=== PATIENT | male | born 1995 | race Caucasian/White ===

== ENCOUNTER 2019-05-14 17:11 | Emergency (ER) | payer OTHER ==
[~2019-05-14] VITALS: Ht 195.6 cm; Wt 79.5 kg
[2019-05-14 17:49] LABS: HEMATOCRIT 44.2 % (42.0-52.0); HEMOGLOBIN 16.2 g/dL (13.5-18.0); MEAN CELL VOLUME 88 fl (78-100); MEAN CORPUSCULAR HEMOGLOBIN 32 pg (27-31); MEAN CORPUSCULAR HGB CONC 37 g/dL (33-37); MEAN PLATELET VOLUME 10.3 fl (7.4-10.4); PLATELET COUNT 119 K/mm3 (130-400); RED BLOOD COUNT 5.02 M/mm3 (4.20-5.60); RED CELL DISTRIBUTION WIDTH 11.8 % (11.5-14.5); WHITE BLOOD COUNT 11.7 K/mm3 (4.8-10.8)
[2019-05-14 17:59] LABS: ALBUMIN 4.3 g/dL (3.5-5.0)
[2019-05-14 18:00] LABS: SODIUM 131 mmol/L (136-145)
[2019-05-14 18:01] LABS: CALCIUM 9.9 mg/dL (8.3-10.5)
[2019-05-14 18:02] LABS: GLUCOSE 145 mg/dL (75-110); TOTAL PROTEIN 7.4 g/dL (6.4-8.3)
[2019-05-14 18:03] LABS: CARBON DIOXIDE 31 mmol/L (22-29)
[2019-05-14 18:04] LABS: TOTAL BILIRUBIN 2.8 mg/dL (0.2-1.2)
[2019-05-14 18:07] LABS: AST-SGOT 78 U/L (5-34)
[2019-05-14 18:09] LABS: ALT/SGPT 58 U/L (0-55)
[2019-05-14 18:15] LABS: ALCOHOL IN-HOUSE < 10 mg/dL (<10); POTASSIUM 2.6 mmol/L (3.5-5.1)
[2019-05-14 18:25] LABS: BAND 1 % (0-10); LYMPHOCYTE 14 % (20-51); MONOCYTE 11 % (3-10); NEUTROPHILS 74 % (42-75)
[2019-05-14 20:01] LABS: URINE APPEARANCE CLOUDY; URINE BILIRUBIN 1+ (NEGATIVE); URINE BLOOD 50 ery/uL (NEGATIVE); URINE COLOR AMBER; URINE GLUCOSE NEGATIVE (NEGATIVE); URINE KETONE TR (NEGATIVE); URINE LEUKOCYTE ESTERASE NEGATIVE (NEGATIVE); URINE NITRATE NEGATIVE (NEGATIVE); URINE PROTEIN(semi-quant) 1+ mg/dL (NEGATIVE); URINE UROBILINOGEN NORMAL (NORMAL); URINE WBC 0-1 /hpf (0-3)
[2019-05-14 20:02] LABS: URINE MUCUS PRESENT (NOT PRESENT)
[2019-05-14 22:30] LABS: CALCIUM 8.6 mg/dL (8.3-10.5)
[2019-05-14 22:36] LABS: POTASSIUM 2.8 mmol/L (3.5-5.1)
[2019-05-15 01:02] VITALS: BP 143/95
[2019-05-15] MEDS ORDERED: K-TAB20 MEQ PO (01:05)
== END 2019-05-15 01:14 | disposition home or self-care (01) ==
LOC: ED 17:11
PROVIDERS: Nurse Practitioner Family
DX: E87.6 Hypokalemia (principal); R55 Syncope and collapse; E86.1 Hypovolemia; R19.7 Diarrhea, unspecified; R11.2 Nausea with vomiting, unspecified; F32.9 Major depressive disorder, single episode, unspecified; Z90.49 Acquired absence of other specified parts of digestive tract
CPT/HCPCS: J2405; J3480; J7030

== ENCOUNTER 2019-05-27 21:04 | Emergency (ER) | payer OTHER ==
[~2019-05-27 21:04] MED LIST: K-TAB20 MEQ PO
[2019-05-27 22:12] LABS: EOS % 0.1 % (0.0-4.0); HEMATOCRIT 44.1 % (42.0-52.0); HEMOGLOBIN 15.5 g/dL (13.5-18.0); LYMPH# 1.2 (1.50-4.00); MEAN CELL VOLUME 90 fl (78-100); MEAN CORPUSCULAR HEMOGLOBIN 32 pg (27-31); MEAN CORPUSCULAR HGB CONC 35 g/dL (33-37); MEAN PLATELET VOLUME 10.5 fl (7.4-10.4); MONO # 0.5 (0.20-0.80); NEU # 5.7 (1.40-6.50); PLATELET COUNT 158 K/mm3 (130-400); RED BLOOD COUNT 4.92 M/mm3 (4.20-5.60); RED CELL DISTRIBUTION WIDTH 12.1 % (11.5-14.5); WHITE BLOOD COUNT 7.5 K/mm3 (4.8-10.8)
[2019-05-27 22:19] LABS: SODIUM 134 mmol/L (136-145)
[2019-05-27 22:20] LABS: ALBUMIN 3.9 g/dL (3.5-5.0)
[2019-05-27 22:21] LABS: CALCIUM 9.3 mg/dL (8.3-10.5)
[2019-05-27 22:22] LABS: GLUCOSE 99 mg/dL (75-110); TOTAL PROTEIN 6.7 g/dL (6.4-8.3)
[2019-05-27 22:23] LABS: CARBON DIOXIDE 33 mmol/L (22-29)
[2019-05-27 22:24] LABS: TOTAL BILIRUBIN 1.4 mg/dL (0.2-1.2)
[2019-05-27 22:27] LABS: AST-SGOT 94 U/L (5-34)
[2019-05-27 22:29] LABS: ALT/SGPT 119 U/L (0-55)
[2019-05-27 22:42] LABS: ALCOHOL IN-HOUSE < 10 mg/dL (<10); POTASSIUM 2.7 mmol/L (3.5-5.1)
[2019-05-27 23:39] LABS: PH-URINE 7.5 (5.0 - 8.0); URINE APPEARANCE CLEAR; URINE BILIRUBIN NEGATIVE (NEGATIVE); URINE BLOOD NEGATIVE (NEGATIVE); URINE COLOR YELLOW; URINE GLUCOSE NEGATIVE (NEGATIVE); URINE KETONE 1+ (NEGATIVE); URINE LEUKOCYTE ESTERASE NEGATIVE (NEGATIVE); URINE NITRATE NEGATIVE (NEGATIVE); URINE PROTEIN(semi-quant) TRACE mg/dL (NEGATIVE); URINE UROBILINOGEN NORMAL (NORMAL); URINE WBC 0-1 /hpf (0-3)
[2019-05-27 23:40] LABS: URINE MUCUS PRESENT (NOT PRESENT)
[2019-05-28 01:16] VITALS: BP 131/82
== END 2019-05-28 01:16 | disposition short-term general hospital (02) ==
LOC: ED 21:04
PROVIDERS: Physician Assistant
DX: R56.9 Unspecified convulsions (principal); E87.6 Hypokalemia; Z90.49 Acquired absence of other specified parts of digestive tract; Z88.0 Allergy status to penicillin
CPT/HCPCS: J3480

== ENCOUNTER 2019-08-10 22:01 | Emergency (ER) | payer OTHER ==
[~2019-08-10] VITALS: Ht 195.6 cm; Wt 81.8 kg
[2019-08-10] MEDS ORDERED: KEPPRA 500MG500 MG PO (22:08)
[2019-08-10 23:15] VITALS: BP 148/91
== END 2019-08-10 23:15 | disposition home or self-care (01) ==
LOC: ED 22:01
DX: G40.909 Epilepsy, unspecified, not intractable, without status epilepticus (principal); Z88.1 Allergy status to other antibiotic agents

== ENCOUNTER 2020-01-14 22:59 | Emergency (ER) | payer OTHER ==
[~2020-01-14 22:59] MED LIST changes: +ATIVAN1 M1 PO; +KEPPRA 500MG500 MG PO; +VALIUM 5MG T5 MG/TAB PO; +ZOFRAN ODT4 MG PO
[2020-01-14] MEDS ORDERED: PAROXETINE HYDR10 MG PO (23:14)
[2020-01-15 00:27] LABS: HEMATOCRIT 47.4 % (42.0-52.0); HEMOGLOBIN 16.2 g/dL (13.5-18.0); LYMPH# 1.8 (1.50-4.00); MEAN CELL VOLUME 95 fl (78-100); MEAN CORPUSCULAR HEMOGLOBIN 33 pg (27-31); MEAN CORPUSCULAR HGB CONC 34 g/dL (33-37); MEAN PLATELET VOLUME 9.8 fl (7.4-10.4); MONO # 1.3 (0.20-0.80); PLATELET COUNT 349 K/mm3 (130-400); RED BLOOD COUNT 4.98 M/mm3 (4.20-5.60); RED CELL DISTRIBUTION WIDTH 12.7 % (11.5-14.5); WHITE BLOOD COUNT 13.6 K/mm3 (4.8-10.8)
[2020-01-15 00:33] LABS: POTASSIUM 3.4 mmol/L (3.5-5.1)
[2020-01-15 00:35] LABS: ALBUMIN 5.2 g/dL (3.5-5.0); SODIUM 141 mmol/L (136-145)
[2020-01-15 00:36] LABS: CALCIUM 10.7 mg/dL (8.3-10.5); CARBON DIOXIDE 32 mmol/L (22-29)
[2020-01-15 00:37] LABS: GLUCOSE 163 mg/dL (75-110); TOTAL BILIRUBIN 1.6 mg/dL (0.2-1.2)
[2020-01-15 00:40] LABS: AST-SGOT 59 U/L (5-34)
[2020-01-15 00:41] LABS: MAGNESIUM 1.59 mg/dL (1.60-2.60); NEU # 10.5 (1.40-6.50)
[2020-01-15 00:42] LABS: ALCOHOL IN-HOUSE < 10 mg/dL (<10); ALT/SGPT 93 U/L (0-55)
[2020-01-15 00:51] LABS: PARTIAL THROMBOPLASTIN TIME 19.8 SECONDS (21.0-32.0); PROTHROMBIN TIME 10.9 SECONDS (9.0-12.0)
[2020-01-15 01:07] LABS: URINE APPEARANCE HAZY; URINE COLOR AMBER; URINE GLUCOSE NEGATIVE (NEGATIVE); URINE PROTEIN(semi-quant) 1+ mg/dL (NEGATIVE)
[2020-01-15 01:08] LABS: URINE BILIRUBIN 1+ (NEGATIVE); URINE BLOOD NEGATIVE (NEGATIVE); URINE KETONE 1+ (NEGATIVE); URINE LEUKOCYTE ESTERASE NEGATIVE (NEGATIVE); URINE MUCUS PRESENT (NOT PRESENT); URINE NITRATE NEGATIVE (NEGATIVE); URINE UROBILINOGEN NORMAL (NORMAL); URINE WBC 0-1 /hpf (0-3)
[2020-01-15 01:11] LABS: TOTAL BILIRUBIN 1.6 mg/dL (0.2-1.2)
[2020-01-15 01:12] LABS: DIRECT BILIRUBIN 0.7 mg/dL (0.0-0.5)
[2020-01-15 04:25] VITALS: BP 125/80
== END 2020-01-15 04:25 | disposition short-term general hospital (02) ==
LOC: ED 22:59
PROVIDERS: Nurse Practitioner Family
DX: F10.239 Alcohol dependence with withdrawal, unspecified (principal); F19.239 Other psychoactive substance dependence with withdrawal, unspecified; R10.13 Epigastric pain; F32.9 Major depressive disorder, single episode, unspecified; Z90.89 Acquired absence of other organs; Z88.0 Allergy status to penicillin
CPT/HCPCS: J2060; J2405; J3411; J3490; J7030; Q9967

== ENCOUNTER 2020-01-29 16:20 | Emergency (ER) | payer OTHER ==
[~2020-01-29] VITALS: Ht 195.6 cm; Wt 93.2 kg
[~2020-01-29 16:20] MED LIST changes: +PAROXETINE HYDR10 MG PO
[2020-01-29 17:18] LABS: EOS % 0.2 % (0.0-4.0); HEMATOCRIT 49.2 % (42.0-52.0); HEMOGLOBIN 16.4 g/dL (13.5-18.0); LYMPH# 2.2 (1.50-4.00); MEAN CELL VOLUME 93 fl (78-100); MEAN CORPUSCULAR HEMOGLOBIN 31 pg (27-31); MEAN CORPUSCULAR HGB CONC 33 g/dL (33-37); MEAN PLATELET VOLUME 8.8 fl (7.4-10.4); MONO # 0.3 (0.20-0.80); NEU # 2.3 (1.40-6.50); PLATELET COUNT 315 K/mm3 (130-400); RED BLOOD COUNT 5.27 M/mm3 (4.20-5.60); RED CELL DISTRIBUTION WIDTH 11.9 % (11.5-14.5); WHITE BLOOD COUNT 4.8 K/mm3 (4.8-10.8)
[2020-01-29 17:27] LABS: ALBUMIN 4.5 g/dL (3.5-5.0); POTASSIUM 3.5 mmol/L (3.5-5.1)
[2020-01-29 17:28] LABS: CALCIUM 9.8 mg/dL (8.3-10.5)
[2020-01-29 17:30] LABS: TOTAL PROTEIN 7.7 g/dL (6.4-8.3)
[2020-01-29 17:31] LABS: TOTAL BILIRUBIN 0.5 mg/dL (0.2-1.2)
[2020-01-29 21:22] VITALS: BP 148/95
[2020-01-30] MEDS ORDERED: LORAZEPAM1 M1 PO (18:03)
== END 2020-01-29 21:22 | disposition home or self-care (01) ==
LOC: ED 16:20
PROVIDERS: Nurse Practitioner
DX: F10.220 Alcohol dependence with intoxication, uncomplicated (principal); M25.512 Pain in left shoulder; F32.9 Major depressive disorder, single episode, unspecified
CPT/HCPCS: J2405; J3411; J3490; J7030

== ENCOUNTER 2020-01-30 17:49 | Emergency (ER) | payer OTHER ==
[~2020-01-30] VITALS: Ht 195.6 cm; Wt 88.6 kg
[2020-01-30] MEDS ORDERED: LORAZEPAM1 M1 PO (18:03)
[2020-01-30 18:53] LABS: MAGNESIUM 1.75 mg/dL (1.60-2.60)
[2020-01-30 20:24] VITALS: BP 151/95
== END 2020-01-30 20:24 | disposition home or self-care (01) ==
LOC: ED 17:49
PROVIDERS: Family Medicine
DX: S49.92XA Unspecified injury of left shoulder and upper arm, initial encounter (principal); F10.220 Alcohol dependence with intoxication, uncomplicated; F41.9 Anxiety disorder, unspecified; W19.XXXA Unspecified fall, initial encounter; Y90.8 Blood alcohol level of 240 mg/100 ml or more
CPT/HCPCS: J2060

== ENCOUNTER 2020-04-25 23:16 | Emergency (ER) | payer OTHER ==
[~2020-04-25] VITALS: Ht 195.6 cm; Wt 97.7 kg
[~2020-04-25 23:16] MED LIST changes: +LIBRIUM 25M25 MG/CAP PO; +LORAZEPAM1 M1 PO; +TRAVEL SICKNESS25 M1 PO
[2020-04-26 00:34] LABS: EOS % 0.1 % (0.0-4.0); HEMATOCRIT 48.8 % (42.0-52.0); HEMOGLOBIN 16.2 g/dL (13.5-18.0); LYMPH# 2.1 (1.50-4.00); MEAN CELL VOLUME 88 fl (78-100); MEAN CORPUSCULAR HEMOGLOBIN 29 pg (27-31); MEAN CORPUSCULAR HGB CONC 33 g/dL (33-37); MEAN PLATELET VOLUME 9.4 fl (7.4-10.4); MONO # 0.5 (0.20-0.80); NEU # 4.4 (1.40-6.50); PLATELET COUNT 287 K/mm3 (130-400); RED BLOOD COUNT 5.56 M/mm3 (4.20-5.60); RED CELL DISTRIBUTION WIDTH 13.2 % (11.5-14.5)
[2020-04-26 00:45] LABS: ALBUMIN 4.8 g/dL (3.5-5.0); POTASSIUM 3.4 mmol/L (3.5-5.1)
[2020-04-26 00:46] LABS: CALCIUM 9.7 mg/dL (8.3-10.5)
[2020-04-26 00:47] LABS: TOTAL PROTEIN 7.9 g/dL (6.4-8.3)
[2020-04-26 00:49] LABS: TOTAL BILIRUBIN 0.8 mg/dL (0.2-1.2)
[2020-04-26 01:08] VITALS: BP 132/98
[2020-04-26] MEDS ORDERED: PANTOPRAZOLE SO40 MG PO (17:18)
[2020-04-26] MEDS ORDERED: NALTREXONE HYDR50 MG PO (17:19)
[2020-04-26] MEDS ORDERED: DESYREL 100MG100 MG PO (17:19)
[2020-04-26] MEDS ORDERED: EFFEXOR XR150 M1 PO (17:20)
[2020-04-26] MEDS ORDERED: K-TAB20 MEQ PO (17:21)
== END 2020-04-26 01:08 | disposition home or self-care (01) ==
LOC: ED 23:16
PROVIDERS: Nurse Practitioner
DX: F10.229 Alcohol dependence with intoxication, unspecified (principal); F32.9 Major depressive disorder, single episode, unspecified; F41.9 Anxiety disorder, unspecified
CPT/HCPCS: J2405

== ENCOUNTER 2020-04-26 13:19 | Emergency (ER) | payer OTHER ==
[~2020-04-26] VITALS: Ht 195.6 cm; Wt 91.4 kg
[2020-04-26 13:58] LABS: EOS % 0.1 % (0.0-4.0); HEMATOCRIT 48.1 % (42.0-52.0); HEMOGLOBIN 16.4 g/dL (13.5-18.0); LYMPH# 2.4 (1.50-4.00); MEAN CELL VOLUME 87 fl (78-100); MEAN CORPUSCULAR HEMOGLOBIN 30 pg (27-31); MEAN CORPUSCULAR HGB CONC 34 g/dL (33-37); MEAN PLATELET VOLUME 9.4 fl (7.4-10.4); MONO # 0.7 (0.20-0.80); NEU # 4.6 (1.40-6.50); PLATELET COUNT 284 K/mm3 (130-400); RED BLOOD COUNT 5.52 M/mm3 (4.20-5.60); RED CELL DISTRIBUTION WIDTH 13.2 % (11.5-14.5); WHITE BLOOD COUNT 7.7 K/mm3 (4.8-10.8)
[2020-04-26 14:05] LABS: ALBUMIN 4.8 g/dL (3.5-5.0); POTASSIUM 3.3 mmol/L (3.5-5.1); SODIUM 145 mmol/L (136-145)
[2020-04-26 14:06] LABS: CALCIUM 9.6 mg/dL (8.3-10.5)
[2020-04-26 14:07] LABS: GLUCOSE 143 mg/dL (75-110); TOTAL PROTEIN 7.9 g/dL (6.4-8.3)
[2020-04-26 14:08] LABS: CARBON DIOXIDE 25 mmol/L (22-29)
[2020-04-26 14:09] LABS: TOTAL BILIRUBIN 0.9 mg/dL (0.2-1.2)
[2020-04-26 14:10] LABS: ALCOHOL IN-HOUSE 304 mg/dL (<10)
[2020-04-26 14:12] LABS: AST-SGOT 56 U/L (5-34)
[2020-04-26 14:14] LABS: ALT/SGPT 69 U/L (0-55)
[2020-04-26 14:15] LABS: ACETAMINOPHEN < 1 ug/mL; LIPASE 26 U/L (8-78)
[2020-04-26 14:34] LABS: GASTROCCULT NEGATIVE
[2020-04-26 16:50] VITALS: BP 151/92
[2020-04-26] MEDS ORDERED: PANTOPRAZOLE SO40 MG PO (17:18)
[2020-04-26] MEDS ORDERED: DESYREL 100MG100 MG PO (17:19)
[2020-04-26] MEDS ORDERED: NALTREXONE HYDR50 MG PO (17:19)
[2020-04-26] MEDS ORDERED: EFFEXOR XR150 M1 PO (17:20)
[2020-04-26] MEDS ORDERED: K-TAB20 MEQ PO (17:21)
== END 2020-04-26 16:50 | disposition home or self-care (01) ==
LOC: ED 13:19
PROVIDERS: Nurse Practitioner Family
DX: F10.129 Alcohol abuse with intoxication, unspecified (principal); F19.10 Other psychoactive substance abuse, uncomplicated; F32.9 Major depressive disorder, single episode, unspecified; F41.9 Anxiety disorder, unspecified
CPT/HCPCS: J2405; J3411; J3490; J7030

== ENCOUNTER 2020-04-26 19:58 | Emergency (ER) | payer OTHER ==
[~2020-04-26 19:58] MED LIST changes: +DESYREL 100MG100 MG PO; +EFFEXOR XR150 M1 PO; +NALTREXONE HYDR50 MG PO; +PANTOPRAZOLE SO40 MG PO
[2020-04-26 20:09] VITALS: BP 151/93
== END 2020-04-26 20:12 | disposition left against medical advice (07) ==
LOC: ED 19:58
DX: R69 Illness, unspecified (principal)

== ENCOUNTER 2020-04-28 19:39 | Emergency (ER) | payer OTHER ==
[~2020-04-28] VITALS: Ht 182.9 cm; Wt 91.4 kg
[2020-04-28 19:49] VITALS: BP 144/102
[2020-04-28 20:44] LABS: HEMATOCRIT 48.2 % (42.0-52.0); HEMOGLOBIN 16.7 g/dL (13.5-18.0); LYMPH# 2.8 (1.50-4.00); MEAN CELL VOLUME 86 fl (78-100); MEAN CORPUSCULAR HEMOGLOBIN 30 pg (27-31); MEAN CORPUSCULAR HGB CONC 35 g/dL (33-37); MEAN PLATELET VOLUME 9.7 fl (7.4-10.4); MONO # 0.7 (0.20-0.80); NEU # 5.4 (1.40-6.50); PLATELET COUNT 311 K/mm3 (130-400); RED BLOOD COUNT 5.59 M/mm3 (4.20-5.60); RED CELL DISTRIBUTION WIDTH 12.9 % (11.5-14.5)
[2020-04-28 20:54] LABS: ALBUMIN 4.6 g/dL (3.5-5.0); POTASSIUM 3.1 mmol/L (3.5-5.1)
[2020-04-28 20:55] LABS: CALCIUM 9.1 mg/dL (8.3-10.5)
[2020-04-28 20:57] LABS: TOTAL PROTEIN 7.6 g/dL (6.4-8.3)
== END 2020-04-28 21:01 | disposition left against medical advice (07) ==
LOC: ED 19:39
PROVIDERS: Nurse Practitioner Family
DX: S09.90XA Unspecified injury of head, initial encounter (principal); F10.129 Alcohol abuse with intoxication, unspecified; F32.9 Major depressive disorder, single episode, unspecified; F41.9 Anxiety disorder, unspecified; Z90.89 Acquired absence of other organs; W19.XXXA Unspecified fall, initial encounter
CPT/HCPCS: J2405; J3411; J3490; J7030

== ENCOUNTER 2020-05-01 07:08 | Emergency (ER) | payer OTHER ==
[2020-05-01 07:53] LABS: ALBUMIN 3.7 g/dL (3.5-5.0); EOS % 0.1 % (0.0-4.0); HEMATOCRIT 44.6 % (42.0-52.0); HEMOGLOBIN 15.5 g/dL (13.5-18.0); LYMPH# 2.5 (1.50-4.00); MEAN CELL VOLUME 86 fl (78-100); MEAN CORPUSCULAR HEMOGLOBIN 30 pg (27-31); MEAN CORPUSCULAR HGB CONC 35 g/dL (33-37); MONO # 1.1 (0.20-0.80); NEU # 6.2 (1.40-6.50); PLATELET COUNT 257 K/mm3 (130-400); RED CELL DISTRIBUTION WIDTH 12.7 % (11.5-14.5); SODIUM 139 mmol/L (136-145); WHITE BLOOD COUNT 9.8 K/mm3 (4.8-10.8)
[2020-05-01 07:55] LABS: CALCIUM 7.7 mg/dL (8.3-10.5)
[2020-05-01 07:56] LABS: GLUCOSE 116 mg/dL (75-110); TOTAL PROTEIN 5.9 g/dL (6.4-8.3)
[2020-05-01 07:57] LABS: CARBON DIOXIDE 24 mmol/L (22-29)
[2020-05-01 07:58] LABS: TOTAL BILIRUBIN 1.4 mg/dL (0.2-1.2)
[2020-05-01 07:59] LABS: ALCOHOL IN-HOUSE 228 mg/dL (<10)
[2020-05-01 08:01] LABS: AST-SGOT 74 U/L (5-34)
[2020-05-01] MEDS ORDERED: VITAMIN C500 M6 PO (08:02)
[2020-05-01] MEDS ORDERED: MULTIVITAMIN1 SGL PO (08:02)
[2020-05-01] MEDS ORDERED: PROBIOTIC1 EAC1 PO (08:02)
[2020-05-01 08:03] LABS: ALT/SGPT 78 U/L (0-55); MAGNESIUM 1.59 mg/dL (1.60-2.60)
[2020-05-01 08:04] LABS: ACETAMINOPHEN 2 ug/mL
[2020-05-01 08:06] LABS: POTASSIUM 2.7 mmol/L (3.5-5.1)
[2020-05-01 09:19] LABS: PH-URINE 6.5 (5.0 - 8.0); URINE APPEARANCE CLEAR; URINE COLOR T; URINE PROTEIN(semi-quant) NEGATIVE (NEGATIVE)
[2020-05-01 09:20] LABS: URINE BILIRUBIN NEGATIVE (NEGATIVE); URINE BLOOD NEGATIVE (NEGATIVE); URINE GLUCOSE 50 mg/dL mg/dL (NEGATIVE); URINE KETONE NEGATIVE (NEGATIVE); URINE LEUKOCYTE ESTERASE NEGATIVE (NEGATIVE); URINE NITRATE NEGATIVE (NEGATIVE); URINE UROBILINOGEN NORMAL (NORMAL); URINE WBC 0-1 /hpf (0-3)
[2020-05-01 10:20] VITALS: BP 131/83
== END 2020-05-01 10:22 | disposition short-term general hospital (02) ==
LOC: ED 07:08
PROVIDERS: Nurse Practitioner Primary Care
DX: F10.229 Alcohol dependence with intoxication, unspecified (principal); F32.9 Major depressive disorder, single episode, unspecified
CPT/HCPCS: J2060; J2405; J2550; J3411; J3475; J3480; J3490; J7030

== ENCOUNTER → 2020-05-05 | Outpatient (CLI) | payer OTHER ==
[2020-05-01 10:20] VITALS: BP 131/83
[~2020-05-05] MED LIST changes: +MULTIVITAMIN1 SGL PO; +PROBIOTIC1 EAC1 PO; +VITAMIN C500 M6 PO
== END ==
LOC: RAD 16:34
DX: M25.572 Pain in left ankle and joints of left foot (principal)

== ENCOUNTER 2020-06-18 13:16 | Emergency (ER) | payer OTHER ==
[~2020-06-18] VITALS: Ht 195.6 cm; Wt 90.9 kg
[2020-06-18 13:49] LABS: EOS % 0.2 % (0.0-4.0); HEMATOCRIT 41.5 % (42.0-52.0); HEMOGLOBIN 13.7 g/dL (13.5-18.0); LYMPH# 1.5 (1.50-4.00); MEAN CELL VOLUME 89 fl (78-100); MEAN CORPUSCULAR HEMOGLOBIN 29 pg (27-31); MEAN CORPUSCULAR HGB CONC 33 g/dL (33-37); MEAN PLATELET VOLUME 8.9 fl (7.4-10.4); MONO # 0.5 (0.20-0.80); PLATELET COUNT 364 K/mm3 (130-400); RED BLOOD COUNT 4.66 M/mm3 (4.20-5.60); RED CELL DISTRIBUTION WIDTH 13.1 % (11.5-14.5)
[2020-06-18 14:00] LABS: ALBUMIN 4.1 g/dL (3.5-5.0)
[2020-06-18 14:01] LABS: POTASSIUM 4.2 mmol/L (3.5-5.1)
[2020-06-18 14:02] LABS: CALCIUM 9.2 mg/dL (8.3-10.5)
[2020-06-18 14:03] LABS: TOTAL PROTEIN 6.6 g/dL (6.4-8.3)
[2020-06-18 14:05] LABS: TOTAL BILIRUBIN 0.2 mg/dL (0.2-1.2)
[2020-06-18 17:10] VITALS: BP 158/88
== END 2020-06-18 17:30 | disposition home or self-care (01) ==
LOC: ED 13:16
PROVIDERS: Nurse Practitioner Family
DX: J06.9 Acute upper respiratory infection, unspecified (principal); Z90.49 Acquired absence of other specified parts of digestive tract; Z20.828 Contact with and (suspected) exposure to other viral communicable diseases
CPT/HCPCS: J2405; J2930; J7030

== ENCOUNTER → 2020-09-07 | Outpatient (CLI) | payer OTHER | LOC: RAD 18:51 | DX: M25.561 Pain in right knee (principal) ==

== ENCOUNTER 2021-02-06 17:00 | Emergency (ER) | payer BC ==
[2021-02-06 17:11] LABS: BASO # 0.02 (0.02-0.10); EOS # 0.06 (0.04-0.40); EOS % 0.9 % (0.0-4.0); HEMATOCRIT 42.3 % (42.0-52.0); HEMOGLOBIN 14.2 g/dL (13.5-18.0); LYMPH# 1.78 (1.50-4.00); MEAN CELL VOLUME 86 fl (78-100); MEAN CORPUSCULAR HEMOGLOBIN 29 pg (27-31); MEAN CORPUSCULAR HGB CONC 34 g/dL (33-37); MEAN PLATELET VOLUME 9.7 fl (7.4-10.4); MONO # 0.33 (0.20-0.80); NEU # 4.42 (1.40-6.50); PLATELET COUNT 262 K/mm3 (130-400); RED BLOOD COUNT 4.91 M/mm3 (4.20-5.60); RED CELL DISTRIBUTION WIDTH 13.7 % (11.5-14.5); WHITE BLOOD COUNT 6.6 K/mm3 (4.8-10.8)
[2021-02-06 17:23] LABS: ALBUMIN 4.4 g/dL (3.5-5.0); POTASSIUM 3.6 mmol/L (3.5-5.1); SODIUM 144 mmol/L (136-145)
[2021-02-06 17:24] LABS: CALCIUM 9.2 mg/dL (8.3-10.5)
[2021-02-06 17:26] LABS: GLUCOSE 110 mg/dL (75-110); TOTAL PROTEIN 7.4 g/dL (6.4-8.3)
[2021-02-06 17:27] LABS: CARBON DIOXIDE 24 mmol/L (22-29); TOTAL BILIRUBIN 0.2 mg/dL (0.2-1.2)
[2021-02-06 17:28] LABS: ALCOHOL IN-HOUSE 292 mg/dL (<10)
[2021-02-06 17:31] LABS: AST-SGOT 21 U/L (5-34)
[2021-02-06 17:32] LABS: ALT/SGPT 27 U/L (0-55)
[2021-02-06 17:33] LABS: LIPASE 38 U/L (8-78)
[2021-02-06 17:34] LABS: ACETAMINOPHEN < 1 ug/mL
[2021-02-06 17:38] LABS: URINE WBC 0 /hpf (0-3)
[2021-02-06 17:41] LABS: URINE COLOR YELLOW
[2021-02-06 17:42] LABS: URINE APPEARANCE CLEAR; URINE BILIRUBIN NEGATIVE (NEGATIVE); URINE BLOOD NEGATIVE (NEGATIVE); URINE GLUCOSE NEGATIVE (NEGATIVE); URINE KETONE NEGATIVE (NEGATIVE); URINE LEUKOCYTE ESTERASE NEGATIVE (NEGATIVE); URINE NITRATE NEGATIVE (NEGATIVE); URINE PROTEIN(semi-quant) NEGATIVE (NEGATIVE); URINE UROBILINOGEN NORMAL (NORMAL)
[2021-02-06] MEDS ORDERED: DIAZEPAM10 MG PO (18:22)
[2021-02-06 19:08] VITALS: BP 111/56
== END 2021-02-06 19:08 | disposition short-term general hospital (02) ==
LOC: ED 17:00
PROVIDERS: Nurse Practitioner
DX: T42.4X1A Poisoning by benzodiazepines, accidental (unintentional), initial encounter (principal); F10.10 Alcohol abuse, uncomplicated; J45.909 Unspecified asthma, uncomplicated; F41.9 Anxiety disorder, unspecified; F32.9 Major depressive disorder, single episode, unspecified; G40.909 Epilepsy, unspecified, not intractable, without status epilepticus; Z20.822 Contact with and (suspected) exposure to COVID-19; Z79.899 Other long term (current) drug therapy; Y90.8 Blood alcohol level of 240 mg/100 ml or more
CPT/HCPCS: J1630; J7030

== ENCOUNTER 2021-02-17 04:24 | Emergency (ER) | payer BC ==
[~2021-02-17 04:24] MED LIST changes: +DIAZEPAM10 MG PO
[2021-02-17] MEDS ORDERED: KEPPRA 500MG500 MG PO (04:29)
[2021-02-17 05:48] LABS: HEMATOCRIT 42.3 % (42.0-52.0); HEMOGLOBIN 14.6 g/dL (13.5-18.0); MEAN CELL VOLUME 84 fl (78-100); MEAN CORPUSCULAR HEMOGLOBIN 29 pg (27-31); MEAN CORPUSCULAR HGB CONC 35 g/dL (33-37); MEAN PLATELET VOLUME 10.1 fl (7.4-10.4); PLATELET COUNT 288 K/mm3 (130-400); RED BLOOD COUNT 5.04 M/mm3 (4.20-5.60); RED CELL DISTRIBUTION WIDTH 13.5 % (11.5-14.5); WHITE BLOOD COUNT 18.3 K/mm3 (4.8-10.8)
[2021-02-17 05:51] LABS: ALBUMIN 4.2 g/dL (3.5-5.0); POTASSIUM 3.6 mmol/L (3.5-5.1); SODIUM 136 mmol/L (136-145)
[2021-02-17 05:53] LABS: CALCIUM 9.1 mg/dL (8.3-10.5)
[2021-02-17 05:54] LABS: GLUCOSE 183 mg/dL (75-110); TOTAL PROTEIN 7.3 g/dL (6.4-8.3)
[2021-02-17 05:55] LABS: CARBON DIOXIDE 18 mmol/L (22-29)
[2021-02-17 05:56] LABS: TOTAL BILIRUBIN 0.6 mg/dL (0.2-1.2)
[2021-02-17 05:57] LABS: ALCOHOL IN-HOUSE 141 mg/dL (<10)
[2021-02-17 05:59] LABS: AST-SGOT 420 U/L (5-34)
[2021-02-17 06:01] LABS: ALT/SGPT 174 U/L (0-55); MAGNESIUM 1.65 mg/dL (1.60-2.60)
[2021-02-17 06:02] LABS: ACETAMINOPHEN < 1 ug/mL; LIPASE 15 U/L (8-78)
[2021-02-17 06:20] LABS: URINE APPEARANCE CLOUDY; URINE BILIRUBIN NEGATIVE (NEGATIVE); URINE BLOOD 250 ery/uL (NEGATIVE); URINE COLOR YELLOW; URINE GLUCOSE NEGATIVE (NEGATIVE); URINE KETONE NEGATIVE (NEGATIVE); URINE NITRATE NEGATIVE (NEGATIVE); URINE PROTEIN(semi-quant) 1+ mg/dL (NEGATIVE); URINE UROBILINOGEN NORMAL (NORMAL)
[2021-02-17 06:20] LABS: BAND 25 % (0-10); LYMPHOCYTE 11 % (20-51); MONOCYTE 6 % (3-10); NEUTROPHILS 58 % (42-75)
[2021-02-17 06:21] LABS: URINE LEUKOCYTE ESTERASE NEGATIVE (NEGATIVE)
[2021-02-17 06:22] LABS: URINE MUCUS PRESENT (NOT PRESENT)
[2021-02-17 06:26] LABS: PARTIAL THROMBOPLASTIN TIME 28.8 SECONDS (21.0-32.0); PROTHROMBIN TIME 12.3 SECONDS (9.0-12.0)
[2021-02-17 10:15] VITALS: BP 125/79
== END 2021-02-17 10:24 | disposition short-term general hospital (02) ==
LOC: ED 04:24
PROVIDERS: Nurse Practitioner
DX: J18.9 Pneumonia, unspecified organism (principal); R04.2 Hemoptysis; F10.129 Alcohol abuse with intoxication, unspecified; K56.7 Ileus, unspecified; R94.5 Abnormal results of liver function studies; A41.9 Sepsis, unspecified organism; J45.909 Unspecified asthma, uncomplicated; Z20.822 Contact with and (suspected) exposure to COVID-19
CPT/HCPCS: C9113; J0692; J1170; J2270; J2405; J3010; J7030; Q9967